=== PATIENT | male | born 1975 | race Caucasian/White ===

== ENCOUNTER 2017-12-03 08:09 | Inpatient (IN) | payer OTHER ==
[~2017-12-03] VITALS: Ht 167.6 cm; Wt 67.9 kg
[2017-12-03] VITALS (23 sets, daily range): BP systolic 113–133; BP diastolic 64–84
[2017-12-03] MEDS ORDERED: normal saline 1000ML IV soln IVB ONE ×2 (08:30→09:40)
[2017-12-03] MEDS ORDERED: morphine 4 MG/ML inj SYRINge IV ONE ×2 (08:30→09:25)
[2017-12-03] MEDS ORDERED: ondansetron/PF 4mg/2ml inj IV ONE (08:30)
[2017-12-03 08:41] LABS: BASOPHILS % (AUTO) 0.1 % (0-1); EOSINOPHILS % (AUTO) 0.1 % (0-6); HEMATOCRIT 47.9 % (42.0-52.0); HEMOGLOBIN 16.4 g/dl (14.0-17.9); LYMPHOCYTES # (AUTO) 0.9 X10'3 (1.1-4.8); LYMPHOCYTES % (AUTO) 5.4 % (21-51); MEAN CORPUSCULAR HEMOGLOBIN 31.9 PG (27.0-31.0); MEAN CORPUSCULAR HGB CONC 34.2 % (33.0-36.5); MEAN CORPUSCULAR VOLUME 93.3 FL (78-98); MEAN PLATELET VOLUME 6.9 FL (7.4-10.4); MONOCYTES # (AUTO) 0.6 X10'3 (0-0.9); NEUTROPHILS # (AUTO) 14.6 X10'3 (1.8-7.7); NEUTROPHILS % (AUTO) 90.4 % (42-75); PLATELET COUNT 266 X10'3 (140-440); RED BLOOD COUNT 5.13 X10'6 (4.70-6.10); RED CELL DISTRIBUTION WIDTH 13.8 % (11.5-14.5); WHITE BLOOD COUNT 16.1 X10'3 (4.5-11.0)
[2017-12-03 08:54] LABS: ALANINE AMINOTRANSFERASE 20 U/L (12-78); ALBUMIN 3.4 G/DL (3.4-5.0); ALBUMIN/GLOBULIN RATIO 0.9 (1.1-1.5); ALKALINE PHOSPHATASE 90 IU/L (46-116); ANION GAP 11 (8-16); ASPARTATE AMINO TRANSFERASE 11 U/L (10-37); BLOOD UREA NITROGEN 19 MG/DL (7-18); BUN/CREATININE RATIO 19.6 (5.4-32.0); CALCIUM 8.8 MG/DL (8.5-10.1); CHLORIDE 101 MMOL/L (99-107); CREATININE 0.97 MG/DL (0.60-1.10); GLUCOSE 142 MG/DL (70-104); LIPASE 61 U/L (73-393); POTASSIUM 4.3 MMOL/L (3.5-5.1); SODIUM 138 MMOL/L (135-145); TOTAL CARBON DIOXIDE 26.1 MMOL/L (24-32); TOTAL PROTEIN 7.3 G/DL (6.4-8.2); eGFR 86 ML/MIN
[2017-12-03] MEDS ORDERED: piperacillin/tazo 3.375gm/50ml 50 ML IV ONE (09:25)
[2017-12-03] MEDS ORDERED: NO HOME MEDS (10:02)
[2017-12-03] MEDS ORDERED: clindamycin phosphate 150mg/ml inj. ONE (10:43)
[2017-12-03] MEDS ORDERED: gentamicin 40 MG/1 ML inj ONE (10:43)
[2017-12-03] MEDS ORDERED: sevoflurane 250ml liquid IH ONE (10:56)
[2017-12-03] MEDS ORDERED: neostigmine in sterile water inj 5 MG/5 ML syringe IJ ONE (10:56)
[2017-12-03] MEDS ORDERED: glycopyrrolate 0.2mg/ml inj ONE (10:56)
[2017-12-03] MEDS ORDERED: midazolam 2 mg/2 ml injection ONE (11:02)
[2017-12-03] MEDS ORDERED: fentaNYL /PF 50mcg/ml 5ml ampule ONE ×2 (11:02→12:04)
[2017-12-03] MEDS ORDERED: rocuronium 10mg/ml inj IV ONE ×3 (11:15→12:05)
[2017-12-03] MEDS ORDERED: propofol inj 20 ML IV ONE (11:15)
[2017-12-03] MEDS ORDERED: ringers solution, lacted 1,000 ML IV SCH (11:59)
[2017-12-03] MEDS ORDERED: morphine 4 MG/ML inj SYRINge IV PRN ×3 (12:00→15:35)
[2017-12-03] MEDS ORDERED: ondansetron/PF 4mg/2ml inj IV PRN ×2 (12:00→13:20)
[2017-12-03] MEDS ORDERED: meperidine/PF 25mg/ml syringe IV PRN ×2 (12:00)
[2017-12-03] MEDS ORDERED: proCHLORperazine 10 MG/2 ml inj IV PRN (12:00)
[2017-12-03] MEDS ORDERED: HYDROmorphone 1 mg/ml syringe IV PRN (13:20)
[2017-12-03] MEDS: meperidine/PF 25mg/ml syringe IV PRN ×4 (13:29→14:49)
[2017-12-03] MEDS: normal saline 1000ml 1,000 ML IV SCH ×2 (15:33→20:49)
[2017-12-03] MEDS ORDERED: magnesium 4gm in 100ml NS 100 ML IV PRN (15:35)
[2017-12-03] MEDS ORDERED: mag hydrox/Alum hydrox/simeth 30ml oral suspension PO PRN (15:35)
[2017-12-03] MEDS ORDERED: acetaminophen 325mg tablet PO PRN (15:35)
[2017-12-03] MEDS ORDERED: magnesium/D5W IVPB 50 ML IV PRN (15:35)
[2017-12-03] MEDS ORDERED: magnesium hydroxide 30ml (MOM) UD suspension PO PRN (15:35)
[2017-12-03] MEDS ORDERED: magnesium Cl slow-release 64mg tablet PO PRN (15:35)
[2017-12-03] MEDS ORDERED: potassium Cl 20 mEq SR tablet PO PRN ×2 (15:35)
[2017-12-03] MEDS ORDERED: potassium Cl 40MEQ/NS 500ml 500 ML IV PRN ×2 (15:35)
[2017-12-03] MEDS: K and/or MAG REPLACEMENT MC SCH (15:35)
[2017-12-03] MEDS ORDERED: diphenhydrAMINE 50 mg/ml inj IV PRN (15:35)
[2017-12-03] MEDS ORDERED: piperacillin/tazo 3.375gm/50ml 50 ML IV SCH (16:00)
[2017-12-03] MEDS: levoFLOXACIN-Levaquin 750MG/D5 150 ML IV SCH (16:06)
[2017-12-03] MEDS: metroNIDAZOLE-Flagyl 500mg/NS 100 ML IV SCH (17:33)
[2017-12-03] MEDS: nicotine 21mg patch - 24 hr TD SCH (17:34)
[2017-12-03] MEDS ORDERED: HYDROmorphone 1 mg/ml syringe IV ONE (19:20)
[2017-12-03] MEDS: morphine 4 MG/ML inj SYRINge IV PRN (20:10)
[2017-12-03] MEDS: HYDROmorphone 1 mg/ml syringe IV PRN (20:49)
[2017-12-03] MEDS: HYDROcodone/acetaminophen 10/325mg tab PO PRN (22:11)
[2017-12-04] VITALS: BP 121/74
[2017-12-04] MEDS ORDERED: temazepam 15mg capsule PO ONE ×3 (00:15→22:55)
[2017-12-04] MEDS: metroNIDAZOLE-Flagyl 500mg/NS 100 ML IV SCH ×4 (00:31→23:29)
[2017-12-04] MEDS: HYDROmorphone 1 mg/ml syringe IV PRN ×8 (00:32→21:42)
[2017-12-04] MEDS ORDERED: HYDROmorphone 1 mg/ml syringe IV ONE (01:15)
[2017-12-04] MEDS: morphine 4 MG/ML inj SYRINge IV PRN ×6 (02:19→23:26)
[2017-12-04 04:00] VITALS: BP 135/80
[2017-12-04] MEDS: HYDROcodone/acetaminophen 10/325mg tab PO PRN ×4 (04:38→17:22)
[2017-12-04 05:23] LABS: ALANINE AMINOTRANSFERASE 15 U/L (12-78); ALBUMIN 2.3 G/DL (3.4-5.0); ALBUMIN/GLOBULIN RATIO 0.7 (1.1-1.5); ALKALINE PHOSPHATASE 68 IU/L (46-116); ANION GAP 9 (8-16); ASPARTATE AMINO TRANSFERASE 17 U/L (10-37); BASOPHILS % (AUTO) 0.1 % (0-1); BILIRUBIN,TOTAL 0.9 MG/DL (0.1-1.0); BLOOD UREA NITROGEN 11 MG/DL (7-18); BUN/CREATININE RATIO 13.1 (5.4-32.0); CALCIUM 7.9 MG/DL (8.5-10.1); CHLORIDE 105 MMOL/L (99-107); CREATININE 0.84 MG/DL (0.60-1.10); EOSINOPHILS % (AUTO) 0.1 % (0-6); GLUCOSE 124 MG/DL (70-104); HEMATOCRIT 42.3 % (42.0-52.0); HEMOGLOBIN 14.2 g/dl (14.0-17.9); LYMPHOCYTES # (AUTO) 0.6 X10'3 (1.1-4.8); LYMPHOCYTES % (AUTO) 6.1 % (21-51); MAGNESIUM 1.7 MG/DL (1.5-2.4); MEAN CORPUSCULAR HEMOGLOBIN 31.5 PG (27.0-31.0); MEAN CORPUSCULAR HGB CONC 33.6 % (33.0-36.5); MEAN CORPUSCULAR VOLUME 93.6 FL (78-98); MEAN PLATELET VOLUME 7.6 FL (7.4-10.4); MONOCYTES # (AUTO) 0.7 X10'3 (0-0.9); MONOCYTES % (AUTO) 6.5 % (2-12); NEUTROPHILS # (AUTO) 9.2 X10'3 (1.8-7.7); NEUTROPHILS % (AUTO) 87.2 % (42-75); PHOSPHORUS 2.6 MG/DL (2.3-4.5); PLATELET COUNT 264 X10'3 (140-440); POTASSIUM 4.2 MMOL/L (3.5-5.1); RED BLOOD COUNT 4.52 X10'6 (4.70-6.10); SODIUM 138 MMOL/L (135-145); TOTAL CARBON DIOXIDE 24.5 MMOL/L (24-32); TOTAL PROTEIN 5.7 G/DL (6.4-8.2); WHITE BLOOD COUNT 10.5 X10'3 (4.5-11.0); eGFR > 90 ML/MIN
[2017-12-04] MEDS: normal saline 1000ml 1,000 ML IV SCH ×3 (05:58→23:25)
[2017-12-04] MEDS: K and/or MAG REPLACEMENT MC SCH (08:00)
[2017-12-04] MEDS: nicotine 21mg patch - 24 hr TD SCH (08:06)
[2017-12-04] MEDS: pantoprazole 40 MG vial IV SCH (08:06)
[2017-12-04 08:44] LABS: URINE AMPHETAMINE SCREEN NEGATIVE (Neg); URINE BARBITUATE SCREEN NEGATIVE (Neg); URINE BENZODIAZEPINES SCREEN POSITIVE (Neg); URINE CANNABINOID SCREEN POSITIVE (Neg); URINE COCAINE SCREEN NEGATIVE (Neg); URINE METHADONE SCREEN NEGATIVE (Neg); URINE OPIATE SCREEN POSITIVE (Neg); URINE PHENCYCLIDINE SCREEN NEGATIVE (Neg)
[2017-12-04 08:54] LABS: CLARITY,URINE CLEAR (Clear); COLOR,URINE YELLOW (Yellow); GLUCOSE, URINE NEGATIVE (Neg); KETONES,URINE 40 mg/dl (Neg); LEUKOCYTE ESTERASE ,URINE NEGATIVE (Neg); NITRITES, URINE NEGATIVE (Neg); OCCULT BLOOD,URINE MODERATE (Neg); PH,URINE 5.5 (4.8-8.0); PROTEIN,URINE TRACE mg/dl (Neg)
[2017-12-04] MEDS: levoFLOXACIN-Levaquin 750MG/D5 150 ML IV SCH (08:59)
[2017-12-04 09:05] LABS: UA COLLECTION TYPE NON-SPECIFIED
[2017-12-04 09:39] LABS: BACTERIA,URINE FEW /HPF (Neg); MUCUS STRANDS FEW /LPF (Neg); SQUAMOUS EPITHELIAL CELL,UR FEW /LPF (FEW); WBC,URINE 0-4 /HPF (0-4)
[2017-12-04 11:00] VITALS: BP 111/70
[2017-12-04] MEDS: ipratropium/albuterol 3ml nebule NEB SCH ×2 (19:09→23:05)
[2017-12-04] MEDS: lactobacillus rhamnosus 10,000 MMU CELLS/CAPSULE PO SCH (19:32)
[2017-12-04 20:00] VITALS: BP 121/75
[2017-12-05] VITALS: BP 141/77
[2017-12-05] MEDS ORDERED: temazepam 15mg capsule PO ONE
[2017-12-05] MEDS: HYDROmorphone 1 mg/ml syringe IV PRN ×3 (00:48→07:17)
[2017-12-05] MEDS: ipratropium/albuterol 3ml nebule NEB SCH ×6 (03:00→23:00)
[2017-12-05] MEDS: morphine 4 MG/ML inj SYRINge IV PRN (05:42)
[2017-12-05 06:04] LABS: BASOPHILS % (AUTO) 0.1 % (0-1); EOSINOPHILS # (AUTO) 0.2 X10'3 (0-0.9); HEMATOCRIT 37.8 % (42.0-52.0); HEMOGLOBIN 13.1 g/dl (14.0-17.9); LYMPHOCYTES # (AUTO) 0.8 X10'3 (1.1-4.8); MEAN CORPUSCULAR HEMOGLOBIN 32.4 PG (27.0-31.0); MEAN CORPUSCULAR HGB CONC 34.8 % (33.0-36.5); MEAN CORPUSCULAR VOLUME 93.1 FL (78-98); MEAN PLATELET VOLUME 7.1 FL (7.4-10.4); MONOCYTES # (AUTO) 0.9 X10'3 (0-0.9); MONOCYTES % (AUTO) 9.9 % (2-12); NEUTROPHILS # (AUTO) 7.4 X10'3 (1.8-7.7); PLATELET COUNT 256 X10'3 (140-440); RED BLOOD COUNT 4.06 X10'6 (4.70-6.10); RED CELL DISTRIBUTION WIDTH 13.5 % (11.5-14.5); WHITE BLOOD COUNT 9.4 X10'3 (4.5-11.0)
[2017-12-05 06:32] LABS: ALANINE AMINOTRANSFERASE 14 U/L (12-78); ALBUMIN 2.1 G/DL (3.4-5.0); ALBUMIN/GLOBULIN RATIO 0.6 (1.1-1.5); ALKALINE PHOSPHATASE 68 IU/L (46-116); ANION GAP 10 (8-16); ASPARTATE AMINO TRANSFERASE 20 U/L (10-37); BILIRUBIN,TOTAL 0.6 MG/DL (0.1-1.0); BLOOD UREA NITROGEN 9 MG/DL (7-18); BUN/CREATININE RATIO 12.9 (5.4-32.0); CALCIUM 8.2 MG/DL (8.5-10.1); CHLORIDE 102 MMOL/L (99-107); GLUCOSE 115 MG/DL (70-104); MAGNESIUM 1.8 MG/DL (1.5-2.4); PHOSPHORUS 2.1 MG/DL (2.3-4.5); POTASSIUM 3.8 MMOL/L (3.5-5.1); SODIUM 137 MMOL/L (135-145); TOTAL CARBON DIOXIDE 24.7 MMOL/L (24-32); TOTAL PROTEIN 5.6 G/DL (6.4-8.2); eGFR > 90 ML/MIN
[2017-12-05] MEDS: pantoprazole 40 MG vial IV SCH (07:50)
[2017-12-05] MEDS: lactobacillus rhamnosus 10,000 MMU CELLS/CAPSULE PO SCH ×2 (07:50→19:36)
[2017-12-05] MEDS: levoFLOXACIN-Levaquin 750MG/D5 150 ML IV SCH (07:51)
[2017-12-05] MEDS: normal saline 1000ml 1,000 ML IV SCH ×3 (07:51→19:31)
[2017-12-05] MEDS: nicotine 21mg patch - 24 hr TD SCH (07:51)
[2017-12-05 08:00] VITALS: BP 130/76
[2017-12-05] MEDS: metroNIDAZOLE-Flagyl 500mg/NS 100 ML IV SCH ×3 (08:00→23:42)
[2017-12-05] MEDS: K and/or MAG REPLACEMENT MC SCH (08:22)
[2017-12-05] MEDS: enoxaparin 40mg/0.4ml syringe SUBCUT SCH (08:28)
[2017-12-05] MEDS: oxyCODONE/APAP 10/325mg tablet PO PRN ×5 (10:15→23:42)
[2017-12-05 12:00] VITALS: BP 127/74
[2017-12-05 20:00] VITALS: BP 126/76
[2017-12-06] VITALS: BP 132/80
[2017-12-06] MEDS: oxyCODONE/APAP 10/325mg tablet PO PRN ×4 (03:34→20:10)
[2017-12-06] MEDS: normal saline 1000ml 1,000 ML IV SCH ×3 (03:35→23:52)
[2017-12-06] MEDS: ipratropium/albuterol 3ml nebule NEB SCH ×5 (03:42→23:00)
[2017-12-06 06:37] LABS: BASOPHILS % (AUTO) 0.3 % (0-1); EOSINOPHILS # (AUTO) 0.2 X10'3 (0-0.9); EOSINOPHILS % (AUTO) 1.9 % (0-6); HEMOGLOBIN 12.1 g/dl (14.0-17.9); LYMPHOCYTES % (AUTO) 10.2 % (21-51); MEAN CORPUSCULAR HEMOGLOBIN 31.9 PG (27.0-31.0); MEAN CORPUSCULAR HGB CONC 34.4 % (33.0-36.5); MEAN CORPUSCULAR VOLUME 92.5 FL (78-98); MEAN PLATELET VOLUME 6.9 FL (7.4-10.4); MONOCYTES # (AUTO) 0.8 X10'3 (0-0.9); NEUTROPHILS # (AUTO) 7.6 X10'3 (1.8-7.7); NEUTROPHILS % (AUTO) 79.6 % (42-75); PLATELET COUNT 261 X10'3 (140-440); RED BLOOD COUNT 3.79 X10'6 (4.70-6.10); RED CELL DISTRIBUTION WIDTH 13.8 % (11.5-14.5); WHITE BLOOD COUNT 9.6 X10'3 (4.5-11.0)
[2017-12-06 06:56] LABS: ALANINE AMINOTRANSFERASE 19 U/L (12-78); ALBUMIN 2.1 G/DL (3.4-5.0); ALBUMIN/GLOBULIN RATIO 0.6 (1.1-1.5); ALKALINE PHOSPHATASE 62 IU/L (46-116); ANION GAP 10 (8-16); ASPARTATE AMINO TRANSFERASE 16 U/L (10-37); BILIRUBIN,TOTAL 0.4 MG/DL (0.1-1.0); BLOOD UREA NITROGEN 8 MG/DL (7-18); BUN/CREATININE RATIO 11.8 (5.4-32.0); CALCIUM 8.2 MG/DL (8.5-10.1); CHLORIDE 104 MMOL/L (99-107); CREATININE 0.68 MG/DL (0.60-1.10); GLUCOSE 104 MG/DL (70-104); MAGNESIUM 1.7 MG/DL (1.5-2.4); PHOSPHORUS 2.7 MG/DL (2.3-4.5); POTASSIUM 3.6 MMOL/L (3.5-5.1); SODIUM 139 MMOL/L (135-145); TOTAL CARBON DIOXIDE 24.8 MMOL/L (24-32); TOTAL PROTEIN 5.4 G/DL (6.4-8.2); eGFR > 90 ML/MIN
[2017-12-06 07:51] VITALS: BP 135/87
[2017-12-06] MEDS: K and/or MAG REPLACEMENT MC SCH (08:00)
[2017-12-06] MEDS: nicotine 21mg patch - 24 hr TD SCH (08:48)
[2017-12-06] MEDS: lactobacillus rhamnosus 10,000 MMU CELLS/CAPSULE PO SCH ×2 (08:48→20:09)
[2017-12-06] MEDS: levoFLOXACIN-Levaquin 750MG/D5 150 ML IV SCH (08:49)
[2017-12-06] MEDS: pantoprazole 40 MG vial IV SCH (08:49)
[2017-12-06] MEDS: enoxaparin 40mg/0.4ml syringe SUBCUT SCH (08:49)
[2017-12-06] MEDS: metroNIDAZOLE-Flagyl 500mg/NS 100 ML IV SCH ×3 (10:52→23:52)
[2017-12-06 11:30] VITALS: BP 123/76
[2017-12-06] MEDS: HYDROmorphone 1 mg/ml syringe IV PRN ×2 (17:19→21:37)
[2017-12-06] MEDS: ondansetron/PF 4mg/2ml inj IV PRN (19:08)
[2017-12-06 20:00] VITALS: BP 119/72
[2017-12-07] VITALS: BP 115/70
[2017-12-07] MEDS: HYDROmorphone 1 mg/ml syringe IV PRN ×6 (01:13→21:44)
[2017-12-07] MEDS: ipratropium/albuterol 3ml nebule NEB SCH ×4 (03:00→12:07)
[2017-12-07 05:53] LABS: BASOPHILS % (AUTO) 0.1 % (0-1); EOSINOPHILS # (AUTO) 0.2 X10'3 (0-0.9); EOSINOPHILS % (AUTO) 1.7 % (0-6); HEMATOCRIT 38.9 % (42.0-52.0); HEMOGLOBIN 13.5 g/dl (14.0-17.9); LYMPHOCYTES # (AUTO) 1.6 X10'3 (1.1-4.8); LYMPHOCYTES % (AUTO) 13.8 % (21-51); MEAN CORPUSCULAR HEMOGLOBIN 32.2 PG (27.0-31.0); MEAN CORPUSCULAR HGB CONC 34.6 % (33.0-36.5); MEAN PLATELET VOLUME 6.9 FL (7.4-10.4); MONOCYTES % (AUTO) 8.8 % (2-12); NEUTROPHILS # (AUTO) 8.6 X10'3 (1.8-7.7); NEUTROPHILS % (AUTO) 75.6 % (42-75); PLATELET COUNT 310 X10'3 (140-440); RED BLOOD COUNT 4.19 X10'6 (4.70-6.10); RED CELL DISTRIBUTION WIDTH 13.8 % (11.5-14.5); WHITE BLOOD COUNT 11.4 X10'3 (4.5-11.0)
[2017-12-07 06:04] LABS: ALANINE AMINOTRANSFERASE 15 U/L (12-78); ALBUMIN 2.3 G/DL (3.4-5.0); ALBUMIN/GLOBULIN RATIO 0.7 (1.1-1.5); ALKALINE PHOSPHATASE 68 IU/L (46-116); ANION GAP 9 (8-16); ASPARTATE AMINO TRANSFERASE 19 U/L (10-37); BILIRUBIN,TOTAL 0.5 MG/DL (0.1-1.0); CALCIUM 8.7 MG/DL (8.5-10.1); CHLORIDE 103 MMOL/L (99-107); CREATININE 0.65 MG/DL (0.60-1.10); GLUCOSE 88 MG/DL (70-104); MAGNESIUM 1.8 MG/DL (1.5-2.4); PHOSPHORUS 2.9 MG/DL (2.3-4.5); POTASSIUM 3.4 MMOL/L (3.5-5.1); SODIUM 136 MMOL/L (135-145); TOTAL CARBON DIOXIDE 24.1 MMOL/L (24-32); TOTAL PROTEIN 5.6 G/DL (6.4-8.2); eGFR > 90 ML/MIN
[2017-12-07 06:06] LABS: BLOOD UREA NITROGEN 12 MG/DL (7-18); BUN/CREATININE RATIO 18.5 (5.4-32.0)
[2017-12-07 07:00] VITALS: BP 126/73
[2017-12-07] MEDS: pantoprazole 40 MG vial IV SCH (07:53)
[2017-12-07] MEDS: metroNIDAZOLE-Flagyl 500mg/NS 100 ML IV SCH ×3 (07:57→23:22)
[2017-12-07] MEDS: enoxaparin 40mg/0.4ml syringe SUBCUT SCH (07:59)
[2017-12-07] MEDS: K and/or MAG REPLACEMENT MC SCH (07:59)
[2017-12-07] MEDS: lactobacillus rhamnosus 10,000 MMU CELLS/CAPSULE PO SCH ×2 (07:59→19:39)
[2017-12-07] MEDS: nicotine 21mg patch - 24 hr TD SCH ×2 (08:00→08:56)
[2017-12-07] MEDS: levoFLOXACIN-Levaquin 750MG/D5 150 ML IV SCH (09:04)
[2017-12-07] MEDS: normal saline 1000ml 1,000 ML IV SCH ×3 (09:05→23:21)
[2017-12-07 11:00] VITALS: BP 119/66
[2017-12-07] MEDS ORDERED: ipratropium/albuterol 3ml nebule NEB PRN (15:55)
[2017-12-07 20:00] VITALS: BP 126/69
[2017-12-07] MEDS: ondansetron/PF 4mg/2ml inj IV PRN (20:27)
[2017-12-07] MEDS: diatr meglu/diatrizoate 30ml oral sol.-(3 dose) bottle PO SCH (21:05)
[2017-12-07 23:35] VITALS: BP 120/73
[2017-12-08] MEDS: HYDROmorphone 1 mg/ml syringe IV PRN ×4 (02:40→20:20)
[2017-12-08] MEDS: normal saline 1000ml 1,000 ML IV SCH ×3 (03:57→23:29)
[2017-12-08 04:37] LABS: BASOPHILS % (AUTO) 0.3 % (0-1); EOSINOPHILS # (AUTO) 0.2 X10'3 (0-0.9); EOSINOPHILS % (AUTO) 1.2 % (0-6); HEMOGLOBIN 13.3 g/dl (14.0-17.9); LYMPHOCYTES # (AUTO) 1.4 X10'3 (1.1-4.8); LYMPHOCYTES % (AUTO) 10.2 % (21-51); MEAN CORPUSCULAR HEMOGLOBIN 32.2 PG (27.0-31.0); MEAN CORPUSCULAR HGB CONC 34.8 % (33.0-36.5); MEAN CORPUSCULAR VOLUME 92.5 FL (78-98); MEAN PLATELET VOLUME 6.8 FL (7.4-10.4); MONOCYTES % (AUTO) 7.7 % (2-12); NEUTROPHILS # (AUTO) 10.7 X10'3 (1.8-7.7); NEUTROPHILS % (AUTO) 80.6 % (42-75); PLATELET COUNT 338 X10'3 (140-440); RED BLOOD COUNT 4.11 X10'6 (4.70-6.10); RED CELL DISTRIBUTION WIDTH 13.4 % (11.5-14.5); WHITE BLOOD COUNT 13.3 X10'3 (4.5-11.0)
[2017-12-08 05:00] LABS: ALANINE AMINOTRANSFERASE 18 U/L (12-78); ALBUMIN 2.1 G/DL (3.4-5.0); ALBUMIN/GLOBULIN RATIO 0.7 (1.1-1.5); ALKALINE PHOSPHATASE 66 IU/L (46-116); ANION GAP 11 (8-16); ASPARTATE AMINO TRANSFERASE 21 U/L (10-37); BILIRUBIN,TOTAL 0.5 MG/DL (0.1-1.0); BLOOD UREA NITROGEN 13 MG/DL (7-18); CALCIUM 8.2 MG/DL (8.5-10.1); CHLORIDE 105 MMOL/L (99-107); CREATININE 0.62 MG/DL (0.60-1.10); GLUCOSE 91 MG/DL (70-104); MAGNESIUM 1.6 MG/DL (1.5-2.4); PHOSPHORUS 2.9 MG/DL (2.3-4.5); POTASSIUM 3.7 MMOL/L (3.5-5.1); SODIUM 140 MMOL/L (135-145); TOTAL CARBON DIOXIDE 23.9 MMOL/L (24-32); TOTAL PROTEIN 5.2 G/DL (6.4-8.2); eGFR > 90 ML/MIN
[2017-12-08 08:00] VITALS: BP 138/67
[2017-12-08] MEDS: K and/or MAG REPLACEMENT MC SCH (08:00)
[2017-12-08] MEDS: ondansetron/PF 4mg/2ml inj IV PRN (08:16)
[2017-12-08] MEDS: diatr meglu/diatrizoate 30ml oral sol.-(3 dose) bottle PO SCH ×2 (08:18→10:45)
[2017-12-08] MEDS: metroNIDAZOLE-Flagyl 500mg/NS 100 ML IV SCH ×3 (08:21→23:29)
[2017-12-08] MEDS: levoFLOXACIN-Levaquin 750MG/D5 150 ML IV SCH (08:21)
[2017-12-08] MEDS: pantoprazole 40 MG vial IV SCH (08:27)
[2017-12-08] MEDS: lactobacillus rhamnosus 10,000 MMU CELLS/CAPSULE PO SCH ×2 (08:27→20:00)
[2017-12-08] MEDS: enoxaparin 40mg/0.4ml syringe SUBCUT SCH (08:28)
[2017-12-08 11:00] VITALS: BP 132/75
[2017-12-08] MEDS: metoclopramide 5 mg/ml inj IV SCH ×2 (14:53→20:20)
[2017-12-08 20:00] VITALS: BP 126/63
[2017-12-09] VITALS: BP 130/69
[2017-12-09] MEDS: HYDROmorphone 1 mg/ml syringe IV PRN (00:45)
[2017-12-09] MEDS: metoclopramide 5 mg/ml inj IV SCH ×3 (02:30→15:54)
[2017-12-09 04:44] LABS: BASOPHILS % (AUTO) 0.2 % (0-1); EOSINOPHILS # (AUTO) 0.4 X10'3 (0-0.9); EOSINOPHILS % (AUTO) 2.9 % (0-6); HEMATOCRIT 37.7 % (42.0-52.0); LYMPHOCYTES # (AUTO) 2.4 X10'3 (1.1-4.8); LYMPHOCYTES % (AUTO) 18.9 % (21-51); MEAN CORPUSCULAR HGB CONC 34.6 % (33.0-36.5); MEAN CORPUSCULAR VOLUME 92.6 FL (78-98); MEAN PLATELET VOLUME 6.7 FL (7.4-10.4); MONOCYTES # (AUTO) 1.1 X10'3 (0-0.9); MONOCYTES % (AUTO) 8.9 % (2-12); NEUTROPHILS # (AUTO) 8.7 X10'3 (1.8-7.7); NEUTROPHILS % (AUTO) 69.1 % (42-75); PLATELET COUNT 355 X10'3 (140-440); RED BLOOD COUNT 4.07 X10'6 (4.70-6.10); RED CELL DISTRIBUTION WIDTH 13.3 % (11.5-14.5); WHITE BLOOD COUNT 12.6 X10'3 (4.5-11.0)
[2017-12-09 05:03] LABS: ALANINE AMINOTRANSFERASE 39 U/L (12-78); ALBUMIN 1.9 G/DL (3.4-5.0); ALBUMIN/GLOBULIN RATIO 0.7 (1.1-1.5); ALKALINE PHOSPHATASE 62 IU/L (46-116); ANION GAP 9 (8-16); ASPARTATE AMINO TRANSFERASE 39 U/L (10-37); BILIRUBIN,TOTAL 0.4 MG/DL (0.1-1.0); BLOOD UREA NITROGEN 11 MG/DL (7-18); BUN/CREATININE RATIO 16.7 (5.4-32.0); CALCIUM 8.1 MG/DL (8.5-10.1); CHLORIDE 106 MMOL/L (99-107); CREATININE 0.66 MG/DL (0.60-1.10); GLUCOSE 92 MG/DL (70-104); MAGNESIUM 1.7 MG/DL (1.5-2.4); PHOSPHORUS 3.2 MG/DL (2.3-4.5); POTASSIUM 3.4 MMOL/L (3.5-5.1); SODIUM 140 MMOL/L (135-145); TOTAL CARBON DIOXIDE 25.2 MMOL/L (24-32); TOTAL PROTEIN 4.7 G/DL (6.4-8.2); eGFR > 90 ML/MIN
[2017-12-09 08:00] VITALS: BP 124/76
[2017-12-09] MEDS: nicotine 21mg patch - 24 hr TD SCH (08:00)
[2017-12-09] MEDS: normal saline 1000ml 1,000 ML IV SCH ×2 (08:16→15:33)
[2017-12-09] MEDS: pantoprazole 40 MG vial IV SCH (08:17)
[2017-12-09] MEDS: levoFLOXACIN-Levaquin 750MG/D5 150 ML IV SCH (08:17)
[2017-12-09] MEDS: lactobacillus rhamnosus 10,000 MMU CELLS/CAPSULE PO SCH (08:17)
[2017-12-09] MEDS: metroNIDAZOLE-Flagyl 500mg/NS 100 ML IV SCH ×2 (08:17→15:55)
[2017-12-09] MEDS: enoxaparin 40mg/0.4ml syringe SUBCUT SCH (08:18)
[2017-12-09] MEDS: oxyCODONE/APAP 10/325mg tablet PO PRN ×2 (08:30→15:54)
[2017-12-09] MEDS: K and/or MAG REPLACEMENT MC SCH (08:33)
[2017-12-09 11:42] VITALS: BP 124/75
[2017-12-09] MEDS ORDERED: potassium Cl 40MEQ/NS 500ml 500 ML IV PRN ×2 (15:15)
[2017-12-09] MEDS ORDERED: magnesium Cl slow-release 64mg tablet PO PRN (15:15)
[2017-12-09] MEDS ORDERED: magnesium 4gm in 100ml NS 100 ML IV PRN (15:15)
[2017-12-09] MEDS ORDERED: potassium Cl 20 mEq SR tablet PO PRN ×2 (15:15)
[2017-12-09] MEDS ORDERED: magnesium/D5W IVPB 100 ML IV PRN (15:15)
[2017-12-09] MEDS ORDERED: NICO-687 TD (16:04)
[2017-12-09] MEDS ORDERED: METR500T4 PO (16:04)
[2017-12-09] MEDS ORDERED: LEVO500T89 PO (16:04)
[2017-12-09] MEDS ORDERED: LACT1CAP26 PO (16:04)
[2017-12-09] MEDS ORDERED: PANT40TA4 PO (16:05)
== END 2017-12-09 18:10 | disposition home or self-care (01) | DRG 330 ==
LOC: ER 08:10 → SUR 3N 15:33
PROVIDERS: ADMIT Family Medicine; ATTEND Family Medicine
PROC: 0DBN0ZZ Excision of Sigmoid Colon, Open Approach (ICD-10-PCS; principal; 2017-12-03 10:56)
DX: K57.20 Diverticulitis of large intestine with perforation and abscess without bleeding (principal); A09 Infectious gastroenteritis and colitis, unspecified; N39.0 Urinary tract infection, site not specified; K56.7 Ileus, unspecified; B96.20 Unspecified Escherichia coli [E. coli] as the cause of diseases classified elsewhere; E87.6 Hypokalemia; F10.10 Alcohol abuse, uncomplicated; F12.10 Cannabis abuse, uncomplicated; F17.210 Nicotine dependence, cigarettes, uncomplicated; Z71.6 Tobacco abuse counseling; Z71.51 Drug abuse counseling and surveillance of drug abuser
CPT/HCPCS: 36415; 74176; 80053; 80305; 81001; 83690; 83735; 84100; 85025; 85610; 86885; 86900; 86901; 87040; 87070; 87075; 87076; 87077; 87102; 87186; 94640; 94760; A6251; A6253; A6258; A6266; A6449; A7000; C1758; C9113; J1170; J1200; J1580; J1650; J1956; J2175; J2250; J2270; J2405; J2543; J2704; J2710; J2765; J3010; J3490; J7030; J7120; Q9963